=== PATIENT | female | born 1970 | race Caucasian/White ===

== ENCOUNTER 2021-10-02 15:20 | Emergency (ER) | payer OTHER, BC ==
[2021-10-02 15:40] VITALS: BP 142/80; PULSE 67; TEMP 98; BMI 36.8
== END 2021-10-02 18:11 | disposition home or self-care (01) ==
LOC: JER 15:20 → JERFT 15:20
DX: M54.2 Cervicalgia (principal); V49.40XA Driver injured in collision with unspecified motor vehicles in traffic accident, initial encounter
CPT/HCPCS: 72125-TC; 99284-25